=== PATIENT | female | born 1980 | race Caucasian/White ===

== ENCOUNTER 2016-09-18 09:02 | Outpatient (CLI) | payer OTHER ==
[2016-09-18 09:14] LABS: BASOPHILS % 0.7 (0.0-1.5); EOSINOPHILS % 1.4 % (0.0-6.8); LYMPHOCYTES # 2.2 # k/uL (0.6-4.0); MEAN CORPUSCULAR HEMOGLOBIN 31.5 pg (28.0-34.0); MONOCYTES # 0.4 # k/uL (0.0-0.9); MONOCYTES % 4.6 % (0.0-11.0)
[2016-09-18 09:40] LABS: eGFR (African) > 60; eGFR (Non-African) > 60
== END 2016-09-18 09:03 ==
LOC: LAB 09:02
PROVIDERS: ATTEND Family Medicine
DX: R53.83 Other fatigue (principal)
CPT/HCPCS: 36415; 80053; 84443; 85025

== ENCOUNTER 2016-10-27 15:33 | Outpatient (CLI) | payer OTHER | END 2016-10-27 15:34 | LOC: LAB 15:33 | PROVIDERS: ATTEND Family Medicine | DX: E03.9 Hypothyroidism, unspecified (principal) | CPT/HCPCS: 36415; 84443 ==

== ENCOUNTER 2017-02-26 09:46 | Outpatient (CLI) | payer OTHER | END 2017-02-26 09:47 | LOC: LAB 09:46 | PROVIDERS: ATTEND Physician Assistant | DX: E03.9 Hypothyroidism, unspecified (principal) | CPT/HCPCS: 36415; 84443 ==

== ENCOUNTER 2017-06-30 11:36 | Outpatient (CLI) | payer OTHER ==
[2017-06-30 11:59] LABS: BASOPHILS % 0.8 (0.0-1.5); EOSINOPHILS % 1.6 % (0.0-6.8); MEAN CORPUSCULAR HEMOGLOBIN 31.7 pg (28.0-34.0); MEAN CORPUSCULAR VOLUME 89.8 fl (80.0-100.0); MONOCYTES % 5.2 % (0.0-11.0); NEUTROPHILS # 6.4 # k/uL (1.4-7.7)
[2017-06-30 12:20] LABS: eGFR (African) > 60; eGFR (Non-African) > 60
== END 2017-06-30 12:00 ==
LOC: LAB 11:36
PROVIDERS: ATTEND Physician Assistant
DX: R10.11 Right upper quadrant pain (principal)
CPT/HCPCS: 36415; 80053; 85025

== ENCOUNTER 2017-07-01 07:58 | Outpatient (CLI) | payer OTHER ==
--- NOTE | 2017-07-01 15:36 | Diagnostic Imaging Report ---
ANGELINE ESPINAL [facility] [address] [facility] [address] [address] Report Submission Date: Jul 01, 2017 8:47:47 AM SPORTS SPECIALIST Patient Study Name: RADHA MENDEZ Date: Jul 01, 2017 8:08:23 AM SPORTS SPECIALIST Modality Type: US Gender: F Description: US ABD LIMITED : 80 Institution: [facility] Physician: ANGELINE ESPINAL Examination: Ultrasound gallbladder History: Epigastric discomfort Findings: Sonographic evaluation of the right upper quadrant demonstrates the gallbladder without stones or sludge. Gallbladder wall measures 3.0 mm - upper limits normal. Common bile duct measures 3.8 mm. No intrahepatic biliary dilation. Liver demonstrates increased echogenicity. No mass or cyst. Normal flow on color analysis. Normal Doppler waveforms. Right kidney measures 10.2 cm in length. No cortical mass or cyst. No hydronephrosis. Pancreatic region without gross irregularity. Impression: No gallstone or obstruction. Fatty liver. Electronically signed on Jul 01, 2017 8:47:47 AM SPORTS SPECIALIST by: Gennaro NIEVES
== END 2017-07-01 08:30 ==
LOC: RAD 07:58
PROVIDERS: ATTEND Physician Assistant
DX: R10.11 Right upper quadrant pain (principal)
CPT/HCPCS: 76705

== ENCOUNTER 2017-10-07 08:54 | Outpatient (CLI) | payer OTHER | END 2017-10-07 08:55 | LOC: LAB 08:54 | PROVIDERS: ATTEND Physician Assistant | DX: R94.6 Abnormal results of thyroid function studies (principal) | CPT/HCPCS: 36415; 84443 ==

== ENCOUNTER 2017-10-26 13:56 | Outpatient (CLI) | payer OTHER | END 2017-10-26 14:00 | LOC: LAB 13:56 | PROVIDERS: ATTEND Physician Assistant | DX: R94.6 Abnormal results of thyroid function studies (principal) | CPT/HCPCS: 36415; 84439 ==

== ENCOUNTER 2017-11-13 13:18 | Outpatient (CLI) | payer OTHER | END 2017-11-13 13:20 | LOC: LABRHC 13:18 | PROVIDERS: ATTEND Physician Assistant | DX: L98.9 Disorder of the skin and subcutaneous tissue, unspecified (principal) ==

== ENCOUNTER 2018-01-26 10:34 | Outpatient (CLI) | payer OTHER | END 2018-01-26 10:35 | LOC: LAB 10:34 | PROVIDERS: ATTEND Physician Assistant | DX: E03.9 Hypothyroidism, unspecified (principal) | CPT/HCPCS: 36415; 84439; 84443; 84481 ==

== ENCOUNTER 2018-10-12 13:20 | Outpatient (CLI) | payer OTHER | END 2018-10-12 13:21 | LOC: LABRHC 13:20 | PROVIDERS: ATTEND Family Medicine | DX: E03.9 Hypothyroidism, unspecified (principal) | CPT/HCPCS: 36415; 84443 ==

== ENCOUNTER 2019-04-20 10:06 | Outpatient (CLI) | payer OTHER ==
[2019-04-20 11:11] LABS: HDL 39 mg/dL (>40); eGFR (Non-African) > 60
== END 2019-04-20 10:08 ==
LOC: LAB 10:06
PROVIDERS: ATTEND Nurse Practitioner Family
DX: E03.9 Hypothyroidism, unspecified (principal); I10 Essential (primary) hypertension
CPT/HCPCS: 36415; 80053; 80061; 84439; 84443; 84481